=== PATIENT | female | born 1995 | race Two or more races ===

== ENCOUNTER 2025-04-05 04:41 | Emergency (ER) | payer MEDICAID, SELFPAY ==
[2025-04-05 04:43] VITALS: BMI 24.7
[2025-04-05 04:55] VITALS: BP 121/84; PULSE 129; RESP 18; TEMP 37.7; O2SAT 98
--- NOTE | 2025-04-05 05:26 | PD.EDABDPN ---
ED Abdominal Pain RME/HPI General Chief Complaint: Abdominal Pain Stated complaint: ABD PAIN,N/V/D Time seen by provider: 04/05/25 05:15 Arrival date/time: 04/05/25 04:41 Limitations: no limitations RME / HPI RME / HPI narrative: Patient is a 29-year-old female is seen emerged from concerns for acute onset vomiting and diarrhea that started approximately midnight. Patient states that she went out yesterday had a beer chips and salsa and then approximately midnight patient started vomiting and having multiple episodes of diarrhea. Denies hematemesis, melena, medic easier, fevers, chest pain, palpitations, cough, runny nose, abdominal pain, recent travel, sick contacts, surgeries, alcohol, smoking. MD complaint: abdominal pain Related Data Previous Rx's ?Medication ?Instructions ?Recorded azithromycin 200 mg/5 mL oral 2 tsp PO QDAY #30 mL 04/29/15 suspension pseudoephedrine HCl 30 mg tablet 30 mg PO Q8HR PRN congestion #30 04/29/15 tabs Cyclobenzaprine * (FLEXERIL *) 10 mg PO Q8HR PRN spasm #20 tabs 11/27/15 Sulfamethoxazole/Trimethoprim DS * 1 tab PO BID Infection #14 tabs 01/28/16 (BACTRIM DS *) Allergies Allergy/AdvReac Type Severity Reaction Status Date / Time Penicillins Allergy Unknown Verified 04/05/25 04:41 Review of Systems Review of Systems Systems Reviewed: All systems reviewed, normal except as documented ED Exam General Limitations: Present no limitations Head Head exam: Present atraumatic Eye Eye exam: Present normal appearance ENT ENT exam: Present normal exam Neck Neck exam: Present normal inspection Chest Chest inspection: Present normal inspection Respiratory Respiratory exam: Present normal lung sounds bilaterally Cardiovascular Cardiovascular exam: Present tachycardia Abdominal Exam Abdominal exam: Present soft; Absent distention, tenderness, guarding, rebound or rigidity Extremities Exam Extremities exam: Present normal inspection Neurological Exam Neurological exam: Present alert, oriented X3, CN II-XII intact, normal gait and motor sensory deficit Psychiatric Psychiatric exam: Present normal affect Skin Skin exam: Present warm and normal color; Absent rash, cyanosis, diaphoresis, erythema or pallor Course Quality Measures none Orders Category Date Time Status IV [Insert IV] NOW Care 04/05/25 05:41 Completed HCG,Qualitative Serum Stat Lab 04/05/25 05:30 Completed Acetaminophen Tab [Tylenol Tab] Med 04/05/25 05:30 Discontinued 650 mg PO X1 ONE Ondansetron Odt [Zofran Odt] Med 04/05/25 05:20 Discontinued 4 mg PO X1 ONE Ringers Lactated 1000 ml [Lactated Ringers] 1,000 ml Med 04/05/25 05:20 Discontinued IV 999 mls/hr Vital Signs Vital signs: Vital Signs Temperature 99.8 F 04/05/25 04:55 Pulse Rate 129 H 04/05/25 04:55 Respiratory Rate 18 04/05/25 04:55 Blood Pressure 121/84 04/05/25 04:55 Pulse Oximetry (%) 98 04/05/25 04:55 Abdominal Pain MDM MDM Narrative MDM Narrative:: Patient is a 29-year-old female seen emerged from with concerns for vomiting and diarrhea. Vital signs and exam as above. Concern for food intolerance, , and viral syndrome. Patient abdomen soft on send nontender, no rebound or guarding, less likely pancreatitis, cholelithiasis, cholecystitis, intra-abdominal catastrophe. Had joint decision making conversation with the patient, offered labs, medication for symptom relief and fluids. Patient would like to move forward with medication for symptom relief and fluids. Would like to hold off on labs and testing at this time. [facility]). On reevaluation patient hemodynamically stable not distressed symptoms resolved will discharge home with close return precautions follow-up with her primary care doctor. Given reassuring serial exams, and patient is reliable, will hold off on further testing. Patient data External records reviewed:: [facility] previous records Clinical information provided by:: patient Social determinants that could affect healthcare access:: none Patient has the following chronic illnesses:: none How is presenting disease/condition affected by chronic disease/condition?: no chronic disease Evaluation data The following diagnostics were reviewed and interpreted by me:: lab results Lab and/or radiology exams considered but not ordered:: None Interpretation Summary: none Medications / Prescriptions Medications or Prescriptions considered but not ordered:: None Medication administrations:: Medication Administration History Discontinued Medications Acetaminophen (Acetaminophen 325 Mg Tablet) 650 mg PO X1 ONE Stop: 04/05/25 05:31 Last Admin: 04/05/25 05:45 Dose: 650 mg Documented By: CVL Lactated Ringer's (Lactated Ringers) 1,000 mls @ 999 mls/hr IV .Q1H1M ONE Stop: 04/05/25 06:20 Last Infusion: 04/05/25 06:36 Dose: Infused Documented By: Admin: 04/05/25 05:44 Dose: 999 mls/hr Documented By: CVL Ondansetron HCl (Ondansetron Odt 4 Mg Tabrap) 4 mg PO X1 ONE; Protocol Stop: 04/05/25 05:21 Last Admin: 04/05/25 05:38 Dose: 4 mg Documented By: CVL none Consultations Consultation(s) initiated? (list below): No Diagnosis Differential diagnosis abdominal pain: abdominal pain Most likely diagnosis given after review of the tests above:: Nausea, diarrhea Admission Indicated Admission indicated?: not indicated Admission Request Was there a request for admission?: No Disposition Plan Disposition Plan: Discharge Discharge Attestation Discharge Attestation: The patient and all family members were given an opportunity to ask questions and understood the discharge instructions. Discharge instructions specifically effects, indications for sooner follow up or return to the emergency department, and the expected course of current diagnosis. Patient condition: Stable Discharge Plan Plan Patient Disposition: HOME (Self Care) Prescriptions/Referrals Prescriptions/Med Rec: No Action pseudoephedrine HCl 30 MG tablet 30 mg PO Q8HR PRN (Reason: congestion) Qty: 30 0RF azithromycin 200 MG/5 ML suspension for reconstitution 2 tsp PO QDAY Qty: 30 0RF Cyclobenzaprine * (FLEXERIL *) 10 MG tablet 10 mg PO Q8HR PRN (Reason: spasm) Qty: 20 0RF Sulfamethoxazole/Trimethoprim DS * (BACTRIM DS *) 1 TAB tablet 1 tab PO BID Qty: 14 0RF Referrals: Pura Suggs PA-C [Primary Care Provider] - In 1 week Problem List Clinical Impression: Nausea & vomiting, Diarrhea Patient/Caregiver Discharge Instructions Discharge Activity: activity as tolerated Education Materials: ED Diarrhea, Unknown Cause, ED Vomiting (Adult) Print Language: Romanian Stand Alone Forms: Ya Award Info., Work/School Release, Patient Portal Info Letter
[2025-04-05] MEDS: ONDANSETRON ODT 4 MG TABRAP PO (05:38)
[2025-04-05] MEDS: RINGERS LACTATED 1000 ML 1,000 ML 999 ML IV (05:44)
[2025-04-05 05:45] VITALS: TEMP 37.7
[2025-04-05] MEDS: ACETAMINOPHEN 325 MG TABLET 650 MG PO (05:45)
[2025-04-05 06:08] LABS: HCG,Qualitative Serum Negative
[2025-04-05 06:28] VITALS: BP 117/79; PULSE 93; RESP 16; O2SAT 100
[2025-04-05 06:54] VITALS: RESP 18
== END 2025-04-05 06:55 | disposition home or self-care (01) ==
PROVIDERS: Emergency Provider Emergency Medicine; PCP Physician Assistant
DX: R11.2 Nausea with vomiting, unspecified (principal); R19.7 Diarrhea, unspecified; R10.9 Unspecified abdominal pain
CPT/HCPCS: 36415; 84703; 96360; 99284; J7120; Q0162; A9270